=== PATIENT | male | born 1990 | race Hispanic/Latino ===

== ENCOUNTER 2022-08-14 13:51 | Emergency (ER) | payer SELFPAY ==
[~2022-08-14] VITALS: Ht 167.6 cm; Wt 71.2 kg
[2022-08-14] MEDS ORDERED: CYCLOBENZAPRINE5 MG PO (14:19)
[2022-08-14] MEDS ORDERED: MELOXICAM7.5 MG PO (14:19)
== END 2022-08-14 14:29 | disposition home or self-care (01) ==
LOC: FSED 13:58
DX: M54.50 Low back pain, unspecified (principal); X50.0XXA Overexertion from strenuous movement or load, initial encounter; Y99.0 Civilian activity done for income or pay
CPT/HCPCS: 99282